=== PATIENT | female | born 1975 | race Caucasian/White ===

== ENCOUNTER → 2017-01-15 | Outpatient (CLI) | payer OTHER ==
[~2017-01-15] VITALS: Ht 162.6 cm; Wt 128.4 kg
[~2017-01-15] MED LIST: AUGM875T3 PO; CHLORHEXIDINE GLUCONATE 2 % 1 PACK (2 CLOTHS) TOPICAL PRN; DO NOT ADM ANY ANTICOAGULANT DRUGS PRN; FLUMAZENIL 0.5 MG/5 ML VIAL IV PRN; INSULIN HUMAN REGULAR 1,000 UNITS/10 ML VIAL SQ PRN; LACTATED RINGER'S 1000 ML IV PRN; LEVO112T2 PO; METF500T PO; METOPROLOL TARTRATE 25 MG TAB PO PRN; NALOXONE HCL 0.4 MG/ML AMP IV PRN; PHEN-556 PO; POVIDONE IODINE 5% (ANTISEPSIS KIT) 4 APPLICATIONS EACH NARE PRN; PROM6.254 PO; PROPOFOL 200 MG/20 ML AMP IV PUSH ONE; SODIUM CHLOR 0.9% 1000 ML INJ 1,000 ML IV SCH; SODIUM CHLORID 0.9% 500 ML IV PRN; ZOFR4TAB3 SL
[2017-01-15 10:59] VITALS: BP 165/88; PULSE 83; RESP 20; TEMP 98.3; O2SAT 97
--- NOTE | 2017-01-15 13:17 | PD.PROCEDR ---
GI Procedure REFERRING PHYSICIAN Dr. Giles PROCEDURE PERFORMED EGD with biopsy followed by colonoscopy with biopsy and snare polypectomy INDICATION FOR PROCEDURE Preoperative evaluation prior bariatric surgery and history of constipation PROCEDURE: The procedure, risks and benefits were discussed with Ms. Valderrama and informed consent was obtained. Anesthesia sedated her with Diprivan. She was placed in the left lateral decubitus position. EGD: The Pentax videoscope was introduced through the oropharynx and advanced to the second portion of the duodenum under direct visualization. Retroflexion was performed in the stomach. FINDINGS: Esophagus this was unremarkable except for an irregular Z line this was biopsied Stomach there was a small hiatal hernia there was patchy erythema in the antrum but no ulcerations or erosions the rest of the gastric mucosa was unremarkable antral biopsies were taken for further evaluation The duodenum this was normal Colonoscopy: The Pentax videoscope was introduced through the rectum and advanced to cecum where the ileocecal valve and appendiceal orifice were identified. Retroflexion was performed in the rectum. Colonic prep was good FINDINGS: Colonic withdrawal time greater than 6 minutes as the scope was slowly withdrawn colonic mucosa was carefully inspected the patient was noted to have a small polyp in the sigmoid region this was excised using cold snare technique the patient was noted to have a small area of edema and erythema in the descending colon this is of unclear significance but it does appear to be adjacent to a diverticulum a biopsy was taken for further evaluation the patient was also noted to have mild diverticulosis of the descending and sigmoid region colonic examination was otherwise unremarkable so as retroflexion in rectal examination ESTIMATED BLOOD LOSS: None SPECIMENS REMOVED: Esophageal gastric and colonic samples COMPLICATIONS: None IMPRESSION: Irregular Z line Small hiatal hernia Gastritis Colon polyp Diverticulosis Descending colon erythema of unclear significance PLAN: Await biopsy Colonoscopy in 5 years High fiber diet Bryson Torres MD Jan 15, 2017 13:17
[2017-01-15 14:00] VITALS: BP 157/87; PULSE 84; RESP 18; TEMP 97.4; O2SAT 95
== END ==
LOC: HEND 10:11
PROVIDERS: ATTEND Internal Medicine Gastroenterology
DX: K29.50 Unspecified chronic gastritis without bleeding (principal); K44.9 Diaphragmatic hernia without obstruction or gangrene; D12.5 Benign neoplasm of sigmoid colon; K63.89 Other specified diseases of intestine; K57.30 Diverticulosis of large intestine without perforation or abscess without bleeding; K59.00 Constipation, unspecified; E66.9 Obesity, unspecified; I10 Essential (primary) hypertension; G47.30 Sleep apnea, unspecified; J45.909 Unspecified asthma, uncomplicated; E11.9 Type 2 diabetes mellitus without complications; M54.9 Dorsalgia, unspecified; E03.9 Hypothyroidism, unspecified; Z68.42 Body mass index [BMI] 45.0-49.9, adult; Z01.818 Encounter for other preprocedural examination; Z79.84 Long term (current) use of oral hypoglycemic drugs; Z79.899 Other long term (current) drug therapy
CPT/HCPCS: 88305; 88312

== ENCOUNTER 2017-02-11 08:30 | Inpatient (IN) | payer OTHER ==
[~2017-02-11] VITALS: Ht 162.6 cm; Wt 129.3 kg
[~2017-02-11 08:30] MED LIST changes: -CHLORHEXIDINE GLUCONATE 2 % 1 PACK (2 CLOTHS) TOPICAL PRN; -DO NOT ADM ANY ANTICOAGULANT DRUGS PRN; -FLUMAZENIL 0.5 MG/5 ML VIAL IV PRN; -INSULIN HUMAN REGULAR 1,000 UNITS/10 ML VIAL SQ PRN; -LACTATED RINGER'S 1000 ML IV PRN; -METOPROLOL TARTRATE 25 MG TAB PO PRN; -NALOXONE HCL 0.4 MG/ML AMP IV PRN; -POVIDONE IODINE 5% (ANTISEPSIS KIT) 4 APPLICATIONS EACH NARE PRN; -PROM6.254 PO; -PROPOFOL 200 MG/20 ML AMP IV PUSH ONE; -SODIUM CHLOR 0.9% 1000 ML INJ 1,000 ML IV SCH; -SODIUM CHLORID 0.9% 500 ML IV PRN; -ZOFR4TAB3 SL
[2017-02-14] MEDS ORDERED: CHLORHEXIDINE GLUCONATE 2 % 1 PACK (2 CLOTHS) TOPICAL PRN (09:15)
[2017-02-14] MEDS ORDERED: INSULIN HUMAN REGULAR 1,000 UNITS/10 ML VIAL SQ PRN (09:15)
[2017-02-14] MEDS ORDERED: SCOPOLAMINE 1.5 MG PATCH T-DERMAL SCH (09:15)
[2017-02-14] MEDS ORDERED: METOPROLOL TARTRATE 25 MG TAB PO PRN (09:15)
[2017-02-14] MEDS ORDERED: SODIUM CHLORID 0.9% 500 ML IV PRN (09:15)
[2017-02-14] MEDS ORDERED: ACETAMINOPHEN 1000 MG/100 ML 100 ML IV SCH (09:15)
[2017-02-14] MEDS ORDERED: APREPITANT 40 MG CAP PO SCH (09:15)
[2017-02-14] MEDS ORDERED: metroNIDAZOLE 500 MG INJ 100 ML IV SCH (09:15)
[2017-02-14] MEDS ORDERED: LACTATED RINGER'S 1000 ML IV PRN (09:15)
[2017-02-14] MEDS ORDERED: POVIDONE IODINE 5% (ANTISEPSIS KIT) 4 APPLICATIONS EACH NARE PRN (09:15)
[2017-02-14] MEDS ORDERED: LEVO112T2 PO (09:34)
[2017-02-14] MEDS: ONDANSETRON HCL 4 MG/2 ML VIAL IV PUSH SCH (11:47)
[2017-02-14] MEDS ORDERED: FAMOTIDINE 20 MG/2 ML VIAL ONE (12:37)
[2017-02-14] MEDS ORDERED: MIDAZOLAM HCL 2 MG/2 ML VIAL ONE (12:37)
[2017-02-14] MEDS ORDERED: LACTATED RINGER'S 1000 ML INJ 1,000 ML IV ONE (14:18)
[2017-02-14] MEDS ORDERED: ONDANSETRON HCL 4 MG/2 ML VIAL IV PUSH ONE (14:18)
[2017-02-14] MEDS ORDERED: PROPOFOL 200 MG/20 ML AMP IV ONE (14:18)
[2017-02-14] MEDS ORDERED: NEOSTIGMINE 3 MG/3 ML SYR IV ONE (14:18)
[2017-02-14] MEDS: ceFAZolin 2 GM PREMIX 50 ML IV SCH ×2 (14:59→15:03)
[2017-02-14] MEDS ORDERED: METHYLENE BLUE 10 MG/ML VIAL NG ONE (15:00)
[2017-02-14] MEDS ORDERED: BUPIVACAINE/EPINEPHRINE 0.25% PF 10 ML VIAL INFIL ONE (15:00)
[2017-02-14] MEDS ORDERED: ACETAMINOPHEN 325MG/HYDROcodone 7.5MG/15ML UDC PO PRN (15:15)
[2017-02-14] MEDS ORDERED: Post-op Orders (for Pharmacy) MISC OTHER ONE (15:15)
[2017-02-14] MEDS ORDERED: diphenhydrAMINE HCL ELIXIR 12.5 MG/5 ML CUP PO PRN (15:15)
[2017-02-14] MEDS ORDERED: ONDANSETRON HCL 4 MG/2 ML VIAL IV PRN (15:15)
[2017-02-14] MEDS ORDERED: NALOXONE HCL 0.4 MG/ML AMP IV PUSH PRN (15:15)
[2017-02-14] MEDS ORDERED: MORPHINE SULFATE 30 MG/30 ML PCA IV SCH (15:15)
[2017-02-14] MEDS ORDERED: diphenhydrAMINE HCL 50 MG/ML VIAL IV PRN (15:15)
[2017-02-14] MEDS ORDERED: SODIUM CHLORIDE 0.9% FLUSH 10 ML FLUSH PRN (15:15)
[2017-02-14] MEDS ORDERED: DO NOT ADM ANY ANTICOAGULANT DRUGS PRN (15:39)
[2017-02-14] MEDS: D5-1/2 NS + KCL 20 MEQ INJ 1,000 ML IV SCH (15:50)
[2017-02-14] MEDS: METOCLOPRAMIDE HCL 10 MG/2 ML VIAL IV PUSH SCH ×2 (15:50→20:59)
[2017-02-14] MEDS ORDERED: *morphine SULFATE 8 MG/ML PERIprocedure ONLY ONE (15:58)
[2017-02-14] MEDS: RESP: ALBUTEROL 2.5 MG/3 ML NEB (SCH) INH ×2 (16:17→21:30)
[2017-02-14 20:00] VITALS: BP 167/84; PULSE 83; RESP 18; TEMP 95.7; O2SAT 95
[2017-02-14] MEDS ORDERED: ENOXAPARIN SODIUM 40 MG/0.4 ML SYRINGE SQ SCH (20:00)
[2017-02-14] MEDS: ACETAMINOPHEN 325MG/HYDROcodone 7.5MG/15ML UDC PO PRN (20:51)
[2017-02-14] MEDS: ENALAPRILAT 1.25 MG/ML VIAL IV PUSH PRN (20:52)
[2017-02-14] MEDS: metroNIDAZOLE 500 MG INJ 100 ML IV SCH (20:55)
[2017-02-14] MEDS: SODIUM CHLORIDE 0.9% FLUSH 10 ML FLUSH IV FLUSH SCH (20:58)
[2017-02-14] MEDS: PCA - TOTAL MG MORPHINE DELIVERED PER SHIFT SCH (21:12)
[2017-02-14 22:30] VITALS: O2SAT 95
[2017-02-15] VITALS (7 sets, daily range): BP systolic 136–192; BP diastolic 67–87; PULSE 56–86; RESP 17–18; TEMP 95.2–98.4; O2SAT 90–94
[2017-02-15] MEDS: RESP: ALBUTEROL 2.5 MG/3 ML NEB (SCH) INH ×6 (02:21→20:00)
[2017-02-15] MEDS: ACETAMINOPHEN 325MG/HYDROcodone 7.5MG/15ML UDC PO PRN ×2 (02:52→16:06)
[2017-02-15] MEDS: D5-1/2 NS + KCL 20 MEQ INJ 1,000 ML IV SCH ×3 (04:15→16:06)
[2017-02-15] MEDS: METOCLOPRAMIDE HCL 10 MG/2 ML VIAL IV PUSH SCH ×2 (04:16→09:21)
[2017-02-15] MEDS: metroNIDAZOLE 500 MG INJ 100 ML IV SCH ×2 (04:16→13:20)
[2017-02-15] MEDS: PCA - TOTAL MG MORPHINE DELIVERED PER SHIFT SCH ×3 (05:50→20:12)
[2017-02-15 07:29] LABS: AUTOMATED NEUTROPHIL # 14.9 TH/MM3 (1.8-7.7); BASOPHIL % 0.1 % (0.0-2.0); EOSINOPHIL % 0.2 % (0.0-4.0); HEMATOCRIT 35.7 % (35.0-46.0); HEMO FLAGS DIFF FINAL; LYMPH % 7.4 % (9.0-44.0); LYMPHOCYTE # 1.3 TH/MM3 (1.0-4.8); MEAN CELL VOLUME 85.1 FL (80.0-100.0); MEAN CORPUSCULAR HEMOGLOBIN 27.5 PG (27.0-34.0); MEAN CORPUSCULAR HGB CONC 32.3 % (32.0-36.0); MONO % 6.6 % (0.0-8.0); NEUT % 85.7 % (16.0-70.0); PLATELET COUNT 315 TH/MM3 (150-450); RED BLOOD COUNT 4.19 MIL/MM3 (4.00-5.30); RED CELL DISTRIBUTION WIDTH 14.2 % (11.6-17.2); WHITE BLOOD COUNT 17.4 TH/MM3 (4.0-11.0)
[2017-02-15 07:48] LABS: BICARBONATE 25.3 MEQ/L (21.0-32.0); MAGNESIUM 1.9 MG/DL (1.5-2.5); POTASSIUM 4.3 MEQ/L (3.5-5.1)
[2017-02-15] MEDS ORDERED: DEXTROSE 50% IN WATER 50 ML VIAL(D50) IV PRN (08:45)
[2017-02-15] MEDS ORDERED: GLUCAGON 1 MG/ML VIAL OTHER PRN (08:45)
[2017-02-15] MEDS: SODIUM CHLORIDE 0.9% FLUSH 10 ML FLUSH IV FLUSH SCH ×2 (09:00→20:12)
[2017-02-15] MEDS: PANTOPRAZOLE SOD 40 MG DELAYED RELEASE TAB PO SCH (09:25)
[2017-02-15] MEDS: metFORMIN HCL 500 MG TAB PO SCH ×2 (09:43→16:54)
[2017-02-15] MEDS: LEVOTHYROXINE SODIUM 112 MCG TAB PO SCH (09:43)
--- NOTE | 2017-02-15 12:09 | HHI.PR ---
Subjective Subjective Notes Sitting up in chair Nausea and pain controlled with medication Has not been walking Objective Vitals/I&O Vital Signs Date Time Temp Pulse Resp B/P (MAP) Pulse Ox O2 Delivery O2 Flow Rate FiO2 02/15/17 08:00 97.9 71 18 166/73 (104) 92 02/15/17 07:53 21 02/14/17 22:30 Nasal Cannula 2.00 Labs Laboratory Tests Test 02/15/17 06:35 White Blood Count 17.4 Red Blood Count 4.19 Hemoglobin 11.5 Hematocrit 35.7 Mean Corpuscular Volume 85.1 Mean Corpuscular Hemoglobin 27.5 Mean Corpuscular Hemoglobin Concent 32.3 Red Cell Distribution Width 14.2 Platelet Count 315 Mean Platelet Volume 8.1 Neutrophils (%) (Auto) 85.7 Lymphocytes (%) (Auto) 7.4 Monocytes (%) (Auto) 6.6 Eosinophils (%) (Auto) 0.2 Basophils (%) (Auto) 0.1 Neutrophils # (Auto) 14.9 Lymphocytes # (Auto) 1.3 Monocytes # (Auto) 1.2 Eosinophils # (Auto) 0.0 Basophils # (Auto) 0.0 CBC Comment DIFF FINAL Differential Comment Blood Urea Nitrogen 8 Creatinine 0.56 Random Glucose 189 Calcium Level 8.4 Magnesium Level 1.9 Sodium Level 135 Potassium Level 4.3 Chloride Level 102 Carbon Dioxide Level 25.3 Anion Gap 8 Estimat Glomerular Filtration Rate 118 Cardiovascular: Regular Lungs: Clear Abdomen: Post-op tenderness Extremities: Perfused Wound Wound : Wound Location: Abdomen Appearance: Clean & Dry A/P Assessment and Plan 41yo F POD#1 laparoscopic RNY -Restart metformin, may need low dose sliding scale -Ambulate halls at least QID -Continue to increase fluids as tolerated -The exam, history, and the medical decision-making described in the above note were completed with the assistance of the mid-level provider. I reviewed and agree with the findings presented. I attest that I had a [id number] encounter with the patient on the same day, and personally performed and documented my assessment and findings in the medical record. Discharge Planning D/C home probably tomorrow Ryder Snider Feb 15, 2017 12:09 Maurizio Ham MD Feb 17, 2017 16:06
[2017-02-15] MEDS ORDERED: BENZOCAINE-MENTHOL (SUGAR FREE) 15 MG-3.6 MG LOZENGE BUCCAL ONE (12:50)
[2017-02-15] MEDS ORDERED: METOCLOPRAMIDE HCL 10 MG/2 ML VIAL IV PUSH PRN (15:15)
[2017-02-15] MEDS ORDERED: METF500T PO (15:40)
[2017-02-15] MEDS: ENALAPRILAT 1.25 MG/ML VIAL IV PUSH PRN (20:13)
[2017-02-16] VITALS: BP 163/77; PULSE 61; RESP 18; TEMP 98.3; O2SAT 93
[2017-02-16] MEDS: ACETAMINOPHEN 325MG/HYDROcodone 7.5MG/15ML UDC PO PRN ×2 (01:08→10:15)
[2017-02-16 01:38] VITALS: O2SAT 93
[2017-02-16] MEDS: RESP: ALBUTEROL 2.5 MG/3 ML NEB (SCH) INH ×2 (01:38→09:07)
[2017-02-16] MEDS: PCA - TOTAL MG MORPHINE DELIVERED PER SHIFT SCH (04:51)
[2017-02-16] MEDS: D5-1/2 NS + KCL 20 MEQ INJ 1,000 ML IV SCH ×2 (04:51)
[2017-02-16] MEDS: LEVOTHYROXINE SODIUM 112 MCG TAB PO SCH (04:51)
[2017-02-16 08:00] VITALS: BP 142/77; PULSE 71; RESP 18; TEMP 97.5; O2SAT 93
--- NOTE | 2017-02-16 08:33 | HHI.PR ---
Subjective Subjective Notes doing better today, bs 154 Objective Vitals/I&O Vital Signs Date Time Temp Pulse Resp B/P (MAP) Pulse Ox O2 Delivery O2 Flow Rate FiO2 02/16/17 08:00 97.5 71 18 142/77 (98) 93 02/15/17 07:53 21 02/14/17 22:30 Nasal Cannula 2.00 Abdomen: Other (soft incision c/d/i) A/P Assessment and Plan POD 2 RYGB plan oob pain control continue metformin bp high overnight possible due to pain pt did not get meds till 1am d/c today script for insulin strips/vials supplies in chart Sathish Lewis MD Feb 16, 2017 08:33
[2017-02-16 09:07] VITALS: O2SAT 98
[2017-02-16] MEDS ORDERED: ZOFR4TAB3 SL (09:41)
[2017-02-16] MEDS ORDERED: PROM6.254 PO (09:43)
[2017-02-16] MEDS: PANTOPRAZOLE SOD 40 MG DELAYED RELEASE TAB PO SCH (10:12)
[2017-02-16] MEDS: metFORMIN HCL 500 MG TAB PO SCH (10:12)
[2017-02-16] MEDS: ONDANSETRON HCL 4 MG/2 ML VIAL IV PUSH SCH (10:12)
--- NOTE | 2017-02-18 10:04 | MP ---
cc: JUAN HAM DATE OF SURGERY: 02/14/2017 DATE OF : 1975 PREOPERATIVE DIAGNOSIS Morbid obesity with a BMI of 49, complicated by obstructive sleep apnea and hyperlipidemia. POSTOPERATIVE DIAGNOSIS Morbid obesity with a BMI of 49, complicated by obstructive sleep apnea and hyperlipidemia. PROCEDURE Laparoscopic Vidya-en-Y gastric bypass, 100 cm Vidya limb, antegastric, antecolic. SURGEON Juan Ham. TEAM ASSISTANT SURGEON Sathish Lewis. Dr. Lewis's assistance was necessary for the procedure due to the complexity of the procedure. Dr. Lewis was necessary for manipulation and exposure during the procedure. Dr. Lewis was utilized for the entire procedure. The home care assistant provided by the hospital was utilized for managing the camera. ANESTHESIA General endotracheal. ESTIMATED BLOOD LOSS Scant. FINDINGS Fatty liver. SPECIMENS None. COMPLICATIONS None. OPERATION The patient was brought to the operating room and placed on the operating table in supine position, bilateral sequential inflation device placed on lower extremities, general anesthesia instituted, antibiotics initiated. The abdomen was prepped and draped sterilely. A point 18 cm distal to the xiphoid in the midline anesthetized with 0.25% Marcaine with epinephrine. The skin incision was made, a 5 mm OptiView port placed under direct vision and pneumoperitoneum was created. Under direct vision a 5 mm left upper quadrant, 12 mm left upper quadrant, 12-mm right upper quadrant and 5 mm right upper quadrant ports were placed. Prior to placement of all ports, the skin and peritoneum were anesthetized with 0.25% Marcaine with epinephrine. The patient's omentum was lifted into the upper abdomen. It was split down the middle to create a path for the Vidya limb. The ligament of Treitz was identified, a point 40 cm distal identified. The small bowel was divided in this region using an [place] Flex stapler vascular load reinforced with SeamGuard. The distal segment was brought up for a distance of 100 cm, enterotomy created in this region, enterotomy in the biliopancreatic limb and a [id number] stapled jejunojejunostomy created in the usual manner. The mesenteric defect at the jejunojejunostomy was closed with 2-0 Surgidac suture in a running manner. The patient was placed in reverse Trendelenburg position with the left side up. The Connie-Flex retractor was placed. The left lobe of the liver was retracted. The angle of His was taken down bluntly, a point 5 cm distal to the GE junction along the lesser curve identified, the lesser sac entered using blunt dissection. The stomach was partitioned horizontally using an [place]-Flex stapler blue load, an additional firing taken directed towards the angle of His to completely divide the stomach. A gastrotomy created in the new stomach, enterotomy in the Vidya limb and gastrojejunostomy created, stomal opening of 2 cm. An 18-Beninese OG tube was placed across the anastomosis, the defect then closed in two layers of running 2-0 Vicryl. Prior to placement of the second layer, methylene blue instilled through the OG tube. There was no evidence of extravasation. Evicel was then placed over the gastrojejunostomy, jejunojejunostomy and all staple lines. The operative field inspected and hemostasis was present. The CO2 was released, all ports were removed. All skin incisions were closed with 4-0 Monocryl. The abdominal wall was cleaned and a sterile dressing placed. The patient was awakened and taken to the recovery room. MD ARIA Galeana/KHRIS /12:11 AM /9:49 AM
== END 2017-02-16 11:05 | disposition home or self-care (01) | DRG 621 ==
LOC: HSDI 02-14 08:31 → N07A 02-14 17:09
PROVIDERS: ADMIT Surgery; ATTEND Surgery
PROC: 0D164ZA Bypass Stomach to Jejunum, Percutaneous Endoscopic Approach (ICD-10-PCS; principal; 2017-02-14 12:42)
DX: E66.01 Morbid (severe) obesity due to excess calories (principal); K76.0 Fatty (change of) liver, not elsewhere classified; I10 Essential (primary) hypertension; E78.5 Hyperlipidemia, unspecified; G47.33 Obstructive sleep apnea (adult) (pediatric); Z68.42 Body mass index [BMI] 45.0-49.9, adult; E11.9 Type 2 diabetes mellitus without complications; E03.9 Hypothyroidism, unspecified; Z79.84 Long term (current) use of oral hypoglycemic drugs; Z88.2 Allergy status to sulfonamides; Z91.040 Latex allergy status; Z87.891 Personal history of nicotine dependence
CPT/HCPCS: 80048; 82948; 83735; 85025; 94150; 94640; 94664; J0131; J0690; J1650; J2250; J2270; J2405; J2710; J2765; J3010; J3480; J7120; J7613; J8501